=== PATIENT | male | born 1985 | race American Indian/Alaskan Native ===

== ENCOUNTER 2018-11-09 10:47 | Emergency (ER) | payer BC, OTHER ==
[2018-11-09] MEDS ORDERED: BACTRIM DS PO ONE (12:22)
--- NOTE | 2018-11-09 12:27 | Emergency Department Report ---
HPI - General Chief Complaint: Upper Respiratory Infection Time Seen by Provider: 11/09/18 12:14 - HPI HPI: 33-year-old male presents to the emergency Department with a 24-hour history of some flulike symptoms that include occasional cough, chills, bodyaches and subjective fever. The patient also has the complaint of some type of hard mass to the left upper anterior thigh that he just noticed yesterday as well. It is red and tender to palpation. He denies any other past medical history. He tried some Mucinex for his symptoms without any relief. No recent travel or sick contacts at home. ED Past Medical Hx - Past Medical History Previous Medical History?: No - Surgical History Past Surgical History?: No - Social History Smoking Status: Current Every Day Smoker Substance Use Type: Alcohol - Medications Home Medications: Home Medications Medication Instructions Recorded Confirmed Last Taken Type Oseltamivir [Tamiflu] 75 mg PO BID #10 cap 11/09/18 Unknown Rx Sulfamethoxazole/Trimethoprim 1 each PO BID #14 tablet 11/09/18 Unknown Rx [Bactrim DS TAB] ED Review of Systems ROS: Stated complaint: BODY PAIN/LUMP ON THIGH/WEAKNESS Other details as noted in HPI Constitutional: chills, fever (subjective) Eyes: denies: eye pain, vision change ENT: denies: ear pain, dental pain Respiratory: cough. denies: shortness of breath Cardiovascular: denies: chest pain, palpitations Gastrointestinal: denies: abdominal pain, vomiting Genitourinary: denies: dysuria, discharge Musculoskeletal: myalgia. denies: joint swelling Skin: lesions (abscess), change in color Neurological: denies: headache, weakness Physical Exam - Physical Exam Vital Signs: Vital Signs 11/09/18 10:51 Temperature 99.2 F Pulse Rate 114 H Respiratory 18 Rate Blood Pressure 157/103 O2 Sat by Pulse 100 Oximetry Physical Exam: GENERAL: The patient is well-developed well-nourished. HEENT: Normocephalic. Atraumatic. Patient has moist mucous membranes. EYES: Extraocular motions are intact. NECK: Supple. Trachea is midline. CHEST/LUNGS: Clear to auscultation. No cough heard during examination. No tac hypnea or accessory muscle use. There is no respiratory distress noted. HEART/CARDIOVASCULAR: Regular. There is no tachycardia. There is no obvious murmur. ABDOMEN: Abdomen is soft, nontender. Patient has normal bowel sounds. Morbidly obese habitus. SKIN: Skin is warm and dry. There is a indurated abscess to the right proximal anterior thigh with some overlying erythema with concern for cellulitis. NEURO: The patient is awake, alert, and oriented. The patient is cooperative. The patient has no focal neurologic deficits. The patient has normal speech. MUSCULOSKELETAL: There is no tenderness or deformity. There is no limitation range of motion. There is no evidence of acute injury. ED Course Vital Signs 11/09/18 10:51 Temperature 99.2 F Pulse Rate 114 H Respiratory 18 Rate Blood Pressure 157/103 O2 Sat by Pulse 100 Oximetry ED Medical Decision Making - Lab Data Result diagrams: 11/09/18 12:23 11/09/18 12:23 - Radiology Data Radiology results: image reviewed interpreted by me: Chest x-ray does not show any pneumothorax, pleural effusion, pneumonia or o bvious focal consolidation. - Medical Decision Making Patient presents with a few days of some cold and/or flulike symptoms. He also complains of a "mass" to the right thigh that appears to be an abscess with some overlying cellulitis. It is indurated however and does not appear ready for any incision and drainage. A chest x-ray was done that does not show any pleural effusions, pneumonia, pneumothorax, focal consolidations, or any other acute process. Vital signs stable including being afebrile. The patient will be placed on Bactrim for his abscess. He was given some Tamiflu for suspicion of flu, as he is inside of the window for treatment. He has been encouraged to follow up with his primary care physician and return to the ER with any worsen ing of his symptoms or any acute distress. - Differential Diagnosis abscess, influenza, viral URI, pneumonia Critical Care Time: No Critical care attestation.: If time is entered above; I have spent that time in minutes in the direct care of this critically ill patient, excluding procedure time. ED Disposition Clinical Impression: Abscess of left thigh, Viral syndrome, Hypertension, Cellulitis of left thigh Disposition: -01 TO HOME OR SELFCARE Is pt being admited?: No Condition: Stable Instructions: Abscess (ED), Viral Syndrome (ED), Hypertension (ED) Additional Instructions: Please follow up with a primary care physician in next few days. Return to the emergency Department with any worsening of your symptoms or any acute distress. You can use a warm, but not hot, compress against the abscess to try and express infection. Prescriptions: Oseltamivir [Tamiflu] 75 mg PO BID #10 cap Sulfamethoxazole/Trimethoprim [Bactrim DS TAB] 1 each PO BID #14 tablet Referrals: [facility] [Other] - 2-3 Days WILMER NANCE MD [Staff Physician] - 2-3 Days
[2018-11-09 12:32] LABS: Basophils # (Auto) 0.1 K/mm3 (0.0-0.1); Basophils % (Auto) 0.5 % (0.0-1.8); Eosinophils % (Auto) 0.4 % (0.0-4.3); Hematocrit 42.1 % (35.5-45.6); Hemoglobin 13.9 gm/dl (11.8-15.2); Lymphocytes # (Auto) 1.2 K/mm3 (1.2-5.4); Lymphocytes % (Auto) 8.7 % (13.4-35.0); Mean Corpuscular HGB Conc 33 % (32-34); Mean Corpuscular Volume 82 fl (84-94); Monocytes # (Auto) 1.5 K/mm3 (0.0-0.8); Monocytes % (Auto) 11.2 % (0.0-7.3); Platelet Count 203 K/mm3 (140-440); Red Blood Count 5.15 M/mm3 (3.65-5.03); Red Cell Distribution Width 14.1 % (13.2-15.2)
[2018-11-09 12:47] LABS: BUN/Creatinine Ratio 10; Blood Urea Nitrogen 8 mg/dL (9-20); Calcium 8.6 mg/dL (8.4-10.2); Hemolysis Index 5
[2018-11-09] MEDS ORDERED: TORADOL IM ONE (13:02)
[2018-11-09 15:07] VITALS: BP 155/66
--- NOTE | 2018-11-09 18:26 | XRay Report ---
PROCEDURE: XR CHEST ROUTINE 2V TECHNIQUE: PA and lateral chest radiographs were obtained. HISTORY: cough COMPARISONS: None. FINDINGS: Heart: Normal. Mediastinum/Vessels: Normal. Lungs/Pleural space: No infiltrate, effusion, or pneumothorax. Bony thorax: No acute osseous abnormality. IMPRESSION: No pulmonary infiltrates are identified. This document is electronically signed by Oralia Morrell MD., November 09 2018 02:25:33 PM ET
== END 2018-11-09 15:33 | disposition home or self-care (01) ==
LOC: ED 10:47
DX: B34.9 Viral infection, unspecified (principal); L02.416 Cutaneous abscess of left lower limb; L03.116 Cellulitis of left lower limb; I10 Essential (primary) hypertension; F17.200 Nicotine dependence, unspecified, uncomplicated
CPT/HCPCS: 36415; 71046; 80048; 85025; 96372; 99284; J1885

== ENCOUNTER 2019-10-20 23:49 | Emergency (ER) | payer SELFPAY ==
[2019-10-20 23:56] VITALS: BP 154/87
== END 2019-10-21 04:49 | disposition left against medical advice (07) ==
LOC: ED 23:49
DX: R30.9 Painful micturition, unspecified (principal); Z53.21 Procedure and treatment not carried out due to patient leaving prior to being seen by health care provider